=== PATIENT | female | born 1990 | race Caucasian/White ===

== ENCOUNTER → 2019-05-25 10:56 | Outpatient (BNVA) | payer OTHER, SELFPAY | PROVIDERS: Family Provider Nurse Practitioner Family; Visit Provider Obstetrics & Gynecology | DX: Z32.01 Encounter for pregnancy test, result positive (principal); R87.612 Low grade squamous intraepithelial lesion on cytologic smear of cervix (LGSIL) | CPT/HCPCS: 81025 ==

== ENCOUNTER 2019-06-16 07:55 | Day surgery (SDC) | payer OTHER, SELFPAY ==
[2019-06-14 11:58] VITALS: BMI 32.4
--- NOTE | 2019-06-14 12:20 | ANES.PREANE2 ---
Pre-Anesthetic Assessment Pre-Anesthetic Assessment: Height/Weight: Height 1.65 m Weight 88.451 kg Preop Diagnosis: Cervical dysplasia Proposed Procedure: Operation Date: 06/16/19 09:00 Proposed Procedures p Cold Knife Cone Biopsy 06608 N87.1(Not Applicable) - Naveed Warner MD Social: Packs per day: 1 Pack years: 11 Exam: Pre-Anes Outpt Exam: alert, oriented x 3, clear to auscultation bilaterally and regular rate & rhythm Airway: Submandibular: WNL Cervical ROM: WNL MP: 1 Musc/skel: Musc/skel: Lower Back Pain Comments: nonradiating Neuropsych: Neuropsych: MCNEAL Anesthetic Plan: ASA status: 2 Anesthesia: General PFSH Anesthesia PFSH: Family History (Updated 06/14/19 @ 09:00 by Bridgette Lawson RN) Grandfather Heart disease PATERNAL Diabetes PATERNAL Hypercholesteremia PATERNAL Family/Other Diabetes MATERNAL AUNT Stroke PATERNAL AUNT Family/Other Diabetes MATERNAL UNCLE Grandmother Cancer MATERNAL Hypertension PATERNAL Dementia paternal Breast cancer maternal Ovarian cancer maternal Social History (Updated 06/14/19 @ 08:58 by Bridgette Lawson RN) Smoking and tobacco status: current every day smoker cigarettes Packs smoked per day: 1 Years cigarettes smoked: 12 Alcohol intake: current Alcohol intake frequency: holidays/special occasions only Female Reproductive History: Date of last menstrual period: 04/21/19 Data Anesthesia Cardiac Studies: No Data to Display
[2019-06-14 12:24] LABS: Add Urine Microscopic? NO
[2019-06-14 12:29] LABS: Basophils % 0.4 %; Eosinophils # 0.2 10^3/uL (0.0-0.8); Eosinophils % 2.4 %; Hemoglobin 11.9 g/dL (11.5-15.3); Lymphocytes # 3.7 10^3/uL (0.8-4.8); Lymphocytes % 38.5 %; Mean Corpuscular Hemoglobin 28.7 pg (28.0-34.0); Mean Corpuscular Volume 84.3 fL (81-99); Mean Platelet Volume 11.1 fL (7.4-10.4); Monocytes # 0.6 10^3/uL (0.2-0.9); Monocytes % 6.2 %; Neutrophils % 52.3 %; Nucleated Red Blood Cells % 0 %; Platelet Count 281 10^3/cmm (130-400); Red Blood Count 4.15 10^6/uL (4.1-5.3); Red Cell Distribution Width 12.2 % (12.1-15.1); White Blood Count 9.6 10^3/uL (4.0-10.0)
[2019-06-14 12:38] LABS: OR HCG Qualitative Urine Negative (Negative)
[2019-06-14 12:41] LABS: Anion Gap 18.8 (5-19); Blood Urea Nitrogen 4 mg/dL (6-20); Carbon Dioxide 22 mmol/L (22-29); Chloride 102 mmol/L (98-107); Creatinine Clr Calc Pharmacy 151.9655; Glomerular Filtration Rate 118.2 mL/min (90-130); Glucose 154 mg/dL (65-115); Osmolality Calculated 287 mOsm/kg (285-295); Potassium 3.8 mmol/L (3.5-5.1); Sodium 139 mmol/L (136-145)
[2019-06-14 12:46] LABS: Urine Appearance Clear (CLEAR); Urine Color Yellow (Yellow); pH Urine 8 (5-7)
[2019-06-14 12:47] LABS: Bilirubin Urine Neg (NEGATIVE); Blood Urine Neg (Negative); Glucose Urine UA Norm (Normal); Ketones Urine Negative (Negative); Leukocyte Esterase Urine Negative (Negative); Nitrate Urine Negative (Negative); Protein Urine Neg (Negative); Sulfosalicylic Acid Urine Negative; Urobilinogen Urine Norm (Negative)
[2019-06-16] VITALS (7 sets, daily range): BP systolic 129–160; BP diastolic 69–102; PULSE 70–109; RESP 16–24; TEMP 36.5–36.8; O2SAT 96–100
--- NOTE | 2019-06-16 08:08 | W.PM.OPSUD ---
Surgery/Procedure H&P Update DATE OF PROCEDURE: June 16, 2019 DATE H&P PERFORMED: 06/14/19 H&P UPDATE INFORMATION: I have reviewed H&P completed within last 30 days and I have examined patient prior to procedure PREOP DIAGNOSIS: Cervical dysplasia PLANNED PROCEDURE: Operation Date: 06/16/19 09:25 Proposed Procedures p Cold Knife Cone Biopsy 26623 N87.1(Not Applicable) - Naveed Warner MD
[2019-06-16] MEDS: sodium chloride 0.9% 1,000 ML 30 ML IV (08:18)
[2019-06-16] MEDS: ketorolac 30 mg/mL INJ IVP (08:18)
[2019-06-16] MEDS: scopolamine 1.5 Patch 1 PATCH TRANSDERMA (08:19)
--- NOTE | 2019-06-16 08:56 | ANES.PAUD2 ---
Pre-Anesthetic Update Pre-Anesthetic Assessment: Date of Surgery/Procedure: 06/16/19 Preop Diagnosis: Cervical dysplasia Proposed Procedure: Operation Date: 06/16/19 09:25 Proposed Procedures p Cold Knife Cone Biopsy 61143 N87.1(Not Applicable) - Naveed Warner MD Last Intake: Intake Last Liquid Date 06/15/19 Last Solid Date 06/15/19 Labs Last 48hrs: Laboratory Results - last 48 hr 06/14/19 06/14/19 06/14/19 12:05 12:05 12:05 WBC 9.6 RBC 4.15 Hgb 11.9 Hct 35.0 L MCV 84.3 MCH 28.7 MCHC 34.0 RDW 12.2 Plt Count 281 MPV 11.1 H Neut % (Auto) 52.3 Lymph % (Auto) 38.5 [place] % (Auto) 6.2 Eos % (Auto) 2.4 Baso % (Auto) 0.4 Neut # (Auto) 5.0 Lymph # (Auto) 3.7 [place] # (Auto) 0.6 Eos # (Auto) 0.2 Baso # (Auto) 0.0 Nucleated RBC % (a uto) 0 Nucleated RBCs # 0.0 Sodium 139 Potassium 3.8 Chloride 102 Carbon Dioxide 22 Anion Gap 18.8 BUN 4 L Creatinine 0.6 GFR Calculation 118.2 Glucose 154 H Calculated Osmolal ity 287 Calcium 10.0 Urine Color Urine Appearance Urine pH Ur Specific Gravit y Urine Protein Urine Glucose (UA) Urine Ketones Urine Blood Urine Nitrate Urine Bilirubin Prot Sulfosalicyli c Acd Urine Urobilinogen Ur Leukocyte Isa ase Urine HCG, Qual Negative Blood Type Antibody Screen 06/14/19 06/14/19 12:05 12:05 WBC RBC Hgb Hct MCV MCH MCHC RDW Plt Count MPV Neut % (Auto) Lymph % (Auto) [place] % (Auto) Eos % (Auto) Baso % (Auto) Neut # (Auto) Lymph # (Auto) [place] # (Auto) Eos # (Auto) Baso # (Auto) Nucleated RBC % (a uto) Nucleated RBCs # Sodium Potassium Chloride Carbon Dioxide Anion Gap BUN Creatinine GFR Calculation Glucose Calculated Osmolal ity Calcium Urine Color Yellow Urine Appearance Clear Urine pH 8 H Ur Specific Gravit y 1.010 Urine Protein Neg Urine Glucose (UA) Norm Urine Ketones Negative Urine Blood Neg Urine Nitrate Negative Urine Bilirubin Neg Prot Sulfosalicyli c Acd Negative Urine Urobilinogen Norm Ur Leukocyte Isa ase Negative Urine HCG, Qual Blood Type O Positive Antibody Screen Negative Vitals: Temperature 97.7 F 06/16/19 08:07 Temperature Source Temporal Artery S can 06/16/19 08:07 Pulse Rate 74 06/16/19 08:07 Respiratory Rate 18 06/16/19 08:07 Blood Pressure 142/95 06/16/19 08:07 Blood Pressure Amie n 110 06/16/19 08:07 Pulse Oximetry 96 06/16/19 08:07 Oxygen Delivery Me thod 06/16/19 08:07 Cardiac Studies: No Data to Display
--- NOTE | 2019-06-16 10:24 | SUR.OPER ---
1020 lugols and monsels solution used on the cervix by dr hermosillo
--- NOTE | 2019-06-16 11:03 | PM.OP ---
Operative Report Date of procedure: June 16, 2019 Pre-op Diagnosis: Cervical dysplasia Post-op diagnosis: same Post-op Findings: normal cervix Procedure Done: Cervical cone Biopsy Specimens removed/disposition: cervical cone specimen Surgeon: Naveed Warner Anesthesia: General Estimated blood loss (mL): 10 IV fluids (mL): 700 Findings: normal-looking cervix Condition: stable Disposition: PACU Brief History: 28-year-old female with abnormal Pap smear high-grade with cervical dysplasia Procedure: After informed consent, the patient was taken to the operating room where general anesthesia was administered without difficulty. After administration of general anesthesia, the patient was placed in the dorsal lithotomy position, and prepped and draped in the usual sterile fashion. A time-out procedure was performed. The patient was examined under anesthesia and found to have a normal uterus with normal adnexa. A weighted speculum was then placed in the patient's vagina and the anterior lip of the cervix grasped with the singed toothed tenaculum A uterine sound was then advanced into the cervix to determine its direction and length. The decending cervical branchs of the uterine arteries were ligated with 2-0 Vicryl bilaterally at the level of the internal os. Attention was then turned to the cervix where it was stain with Lugol?s solution to hightlight the lesion. The paracervical area was then circumferentially infiltrated using Lidocaine 1% with epinephrine. A [employer] Cone Biopsy Excisor was used to cut the cone biopsy in circular fashion and following removal of the specimen a suture was placed at the 12 o?clock location and fixed in formalin. Bleeding was minimal. The patient tolerated the procedure well, sponge, lap and needle counts were correct times two She was taken to the recovery room in good condition.
[2019-06-16] MEDS: cetylpyridinium Lozenge 1 EACH MUCOUS MEM (11:38)
== END 2019-06-16 11:40 | disposition home or self-care (01) ==
PROVIDERS: Family Provider Nurse Practitioner Family; PCP Nurse Practitioner Family; Visit Provider Obstetrics & Gynecology
PROC: 0UB97ZZ Excision of Uterus, Via Natural or Artificial Opening (ICD-10-PCS; CPT 57520; principal; 2019-06-16 09:25)
DX: D06.9 Carcinoma in situ of cervix, unspecified (principal); Z82.49 Family history of ischemic heart disease and other diseases of the circulatory system; Z83.3 Family history of diabetes mellitus; Z80.41 Family history of malignant neoplasm of ovary; Z80.3 Family history of malignant neoplasm of breast; F17.210 Nicotine dependence, cigarettes, uncomplicated
CPT/HCPCS: 57522; 12345; 36415; 80048; 81003; 81025; 84703; 85025; 86850; 86900; 88307; 96365; 96374; J0131; J0690; J1100; J1885; J2001; J2250; J2405; J3010; J7030

== ENCOUNTER → 2019-12-06 14:49 | Outpatient (BNVA) | payer OTHER, SELFPAY | PROVIDERS: Family Provider Nurse Practitioner Family; PCP Nurse Practitioner Family; Visit Provider Internal Medicine | DX: R50.9 Fever, unspecified (principal) | CPT/HCPCS: 87635 ==

== ENCOUNTER → 2020-05-02 11:52 | Outpatient (BNVA) | payer OTHER, SELFPAY | PROVIDERS: Family Provider Nurse Practitioner Family; PCP Nurse Practitioner Family; Visit Provider Family Medicine | DX: Z20.828 Contact with and (suspected) exposure to other viral communicable diseases (principal) | CPT/HCPCS: 87635 ==

== ENCOUNTER → 2020-06-29 14:24 | Outpatient (BNVA) | payer OTHER, SELFPAY | PROVIDERS: Family Provider Nurse Practitioner Family; PCP Nurse Practitioner Family; Visit Provider Obstetrics & Gynecology | DX: R87.610 Atypical squamous cells of undetermined significance on cytologic smear of cervix (ASC-US) (principal); R87.612 Low grade squamous intraepithelial lesion on cytologic smear of cervix (LGSIL) | CPT/HCPCS: 81025; 88305 ==

== ENCOUNTER → 2021-05-09 13:45 | Outpatient (BNVA) | payer OTHER, SELFPAY | PROVIDERS: Family Provider Nurse Practitioner Family; PCP Nurse Practitioner Family; Visit Provider Family Medicine | DX: Z20.822 Contact with and (suspected) exposure to COVID-19 (principal); Z20.828 Contact with and (suspected) exposure to other viral communicable diseases | CPT/HCPCS: 87635 ==

== ENCOUNTER → 2021-07-02 15:44 | Outpatient (BNVA) | payer OTHER, SELFPAY | PROVIDERS: Family Provider Nurse Practitioner Family; PCP Nurse Practitioner Family; Visit Provider Obstetrics & Gynecology | DX: Z12.4 Encounter for screening for malignant neoplasm of cervix (principal) | CPT/HCPCS: 87624 ==

== ENCOUNTER → 2022-11-28 15:50 | Outpatient (BNVA) | payer OTHER, SELFPAY | PROVIDERS: Family Provider Nurse Practitioner Family; PCP Nurse Practitioner Family; Visit Provider Obstetrics & Gynecology | DX: Z12.4 Encounter for screening for malignant neoplasm of cervix (principal) | CPT/HCPCS: 87624 ==

== ENCOUNTER → 2022-12-10 07:51 | Outpatient (BNVA) | payer OTHER, SELFPAY | PROVIDERS: Family Provider Nurse Practitioner Family; PCP Nurse Practitioner Family; Visit Provider Obstetrics & Gynecology | DX: R10.2 Pelvic and perineal pain (principal) | CPT/HCPCS: 76830 ==

== ENCOUNTER → 2023-03-18 10:27 | Day surgery (SDC) | payer OTHER, SELFPAY ==
[2023-03-11 11:12] LABS: Basophils # 0.1 10^3/uL (0.0-0.1); Basophils % 0.6 %; Eosinophils # 0.3 10^3/uL (0.0-0.8); Eosinophils % 2.8 %; Hematocrit 40.8 % (36-47); Lymphocytes # 3.6 10^3/uL (0.8-4.8); Lymphocytes % 31.3 %; Mean Corpuscular HGB Conc 34.3 g/dL (30-55); Mean Corpuscular Volume 87.6 fl (85-98); Mean Platelet Volume 10.5 fL (7.4-10.4); Monocytes # 0.7 10^3/uL (0.2-0.9); Monocytes % 6.1 %; Neutrophils # 6.69 10^3/uL (1.8-7.7); Neutrophils % 58.9 %; Nucleated Red Blood Cells % 0 %; Platelet Count 309 10^3/cmm (157-399); Red Blood Count 4.66 10^6/uL (3.85-5.65); Red Cell Distribution Width 12.3 % (12.1-15.1); White Blood Count 11.35 10^3/uL (3.29-11.43)
[2023-03-11 11:30] LABS: Alanine Aminotransferase 10 U/L (0-33); Albumin Level 4.5 g/dL (3.5-5.2); Alkaline Phosphatase 76 U/L (35-105); Anion Gap 15.3 (5-19); Aspartate Amino Transferase 20 U/L (0-32); Blood Urea Nitrogen 6 mg/dL (6-20); Calcium 9.8 mg/dL (8.5-10.5); Carbon Dioxide 24 mmol/L (22-29); Chloride 105 mmol/L (98-107); Globulin 3.1 g/dL (1.3-4.6); Glomerular Filtration Rate 115.1 mL/min (90-130); Glucose 125 mg/dL (65-115); Osmolality Calculated 289 mOsm/kg (285-295); Potassium 4.3 mmol/L (3.5-5.1); Sodium 140 mmol/L (136-145); Total Bilirubin 0.2 mg/dL (0.15-1.2); Total Protein 7.6 g/dL (6.6-8.7)
[2023-03-11 11:35] LABS: Bilirubin Urine Neg (Negative); Blood Urine 3+ (Negative); Glucose Urine UA Norm (Normal); Ketones Urine Negative (Negative); Nitrate Urine Negative (Negative); Protein Urine Neg (Negative); Sulfosalicylic Acid Urine Negative (Negative); Urine Appearance Clear (CLEAR); Urine Color Straw (Yellow); pH Urine 8 (5-7)
[2023-03-11 11:36] LABS: Add Urine Culture? No; Add Urine Microscopic? YES; Bacteria Urine TRACE /hpf; Leukocyte Esterase Urine Negative (Negative); RBC Urine 0-4 /hpf (0-2); Squamous Epithelial Cell Urine 0-4 /hpf (0-5); Urobilinogen Urine Neg (Negative); WBC Urine 0-4 /hpf (0-5)
--- NOTE | 2023-03-11 13:55 | P.ANESASSM_ITS ---
Pre-Anesthetic Assessment Height/Weight: Height 1.65 m Operation Date: 03/18/23 12:00 Proposed Procedures p Diagnostic laparoscopy 08021, R10.2, G89.29(Not Applicable) - Naveed Warner MD Familial anesthetic complications: PONV Was Beta Feliz taken within 24 hours: N/A Was Clonidine taken within 24 hours: N/A Social Tobacco and No alcohol Exam alert, oriented x 3, clear to auscultation bilaterally and regular rate & rhythm Airway Submandibular: within normal limits Cervical ROM: within normal limits Mallampati: Class II Dentition: chipped Pulmonary Chronic Obstructive Pulmonary Disease GI Gastroesophageal Reflux Disease Metabolic Morbid Obesity Anesthetic Plan ASA status: 2 Anesthesia: General Medications/Allergies Home Medications Medication Instructions Recorded Confirmed Last Taken Type cyclobenzaprine 10 mg tablet 10 mg PO .PRN PRN migrain 05/18/19 03/11/23 03/10/23 History omeprazole 20 mg capsule,delayed 20 mg PO DAILY 12/06/19 03/11/23 03/11/23 History release lactobacillus combination no.8 3 3,000 mmu cells PO DAILY 06/13/20 03/11/23 02/18/23 History billion cell capsule (Adult Probiotic) ibuprofen 800 mg tablet 800 mg PO TID PRN pain #60 tabs 07/02/21 03/11/23 02/25/23 Rx methylsulfonylmethane 1,000 mg 1,000 mg PO ONCE 07/02/21 03/11/23 Unknown History capsule (MSM) ondansetron 4 mg disintegrating 4 mg PO Q8H PRN Nausea 11/28/22 03/11/23 02/25/23 History tablet tirzepatide 10 mg/0.5 mL 10 mg SUBCUT DIRECTED 03/10/23 03/11/23 02/25/23 History subcutaneous pen injector (Mounjaro) Allergies Allergy/AdvReac Type Severity Reaction Status Date / Time metronidazole Allergy Severe ITCHING Verified 03/10/23 07:44 PFSH Anesthesia Medical History LGSIL on Pap smear of cervix 12/29/18--- Family History Grandfather Heart disease PATERNAL Diabetes PATERNAL Hypercholesteremia PATERNAL Family/Other Diabetes MATERNAL AUNT Stroke PATERNAL AUNT Family/Other Diabetes MATERNAL UNCLE Grandmother Cancer MATERNAL Hypertension PATERNAL Dementia paternal Breast cancer maternal Ovarian cancer maternal Social History Smoking and tobacco/nicotine status: current every day tobacco/nicotine user cigarettes Packs smoked per day: 1 Years cigarettes smoked: 12 Alcohol intake: current Alcohol intake frequency: holidays/special occasions only Alcohol type: beer Substance/Drug Use: never Female Reproductive History Date of last menstrual period: 03/09/23 Data Anesthesia 03/11/23 10:33 03/11/23 10:33 Short CBC 03/11/23 Range/Units 10:33 WBC 11.35 (3.29-11.43) 10^3/uL Hgb 14.00 (11.27-16.99) g/dL Hct 40.8 (36-47) % MCV 87.6 (85-98) fl Plt Count 309 (157-399) 10^3/cmm Neut % (Auto) 58.9 % Neut # (Auto) 6.69 (1.8-7.7) 10^3/uL BMP 03/11/23 10:33 Sodium 140 Potassium 4.3 Chloride 105 Carbon Dioxide 24 BUN 6 Creatinine 0.6 Glucose 125 H Calcium 9.8 Liver Function 03/11/23 Range/Units 10:33 Total Bilirubin 0.2 (0.15-1.2) mg/dL AST 20 (0-32) U/L ALT 10 (0-33) U/L Alkaline Phosphatase 76 (35-105) U/L Albumin 4.5 (3.5-5.2) g/dL Urine 03/11/23 Range/Units 10:39 Urine Color Straw (Yellow) Urine Appearance Clear (CLEAR) Urine pH 8 H (5-7) Ur Specific [place] 1.010 (1.005-1.030) Urine Protein Neg (Negative) Urine Glucose (UA) Norm (Normal) Urine Ketones Negative (Negative) Urine Nitrate Negative (Negative) Urine Bilirubin Neg (Negative) Ur Leukocyte Esterase Negative (Negative) Urine RBC 0-4 H (0-2) /hpf Urine WBC 0-4 H (0-5) /hpf Cardiac Studies: No Data to Display
[2023-03-18] VITALS (13 sets, daily range): BP systolic 122–144; BP diastolic 82–101; PULSE 60–95; RESP 12–18; TEMP 36.3–37.1; O2SAT 95–100; BMI 29.1
[2023-03-18] MEDS: sodium chloride 0.9% 1,000 ML 30 ML IV (11:18)
[2023-03-18] MEDS: scopolamine 1.5 Patch 1 PATCH TRANSDERMA (11:20)
--- NOTE | 2023-03-18 12:54 | P.ANESUD_ITS ---
Pre-Anesthetic Update Pre-Anesthetic Assessment: Date of Surgery/Procedure: 03/18/23 Preop Clare gnosis: chronic pelvic pain Proposed Procedure: Operation Date: 03/18/23 12:00 Proposed Procedures p Diagnostic laparoscopy 51220, R10.2, G89.29(Not Applicable) - Naveed Warner MD Any changes to Pre-Anesthetic Assessment?: No Last Intake: Intake Last Liquid Date 03/18/23 Last Liquid Time 01:30 Last Solid Date 03/18/23 Last Solid Time 01:30 Vitals: Temperature 98.8 F 03/18/23 10:41 Temperature Source Temporal Artery S can 03/18/23 10:41 Pulse Rate 95 03/18/23 10:41 Respiratory Rate 18 03/18/23 10:41 Blood Pressure 130/101 03/18/23 10:41 Blood Pressure Amie n 110 03/18/23 10:41 Pulse Oximetry 100 03/18/23 10:41 Oxygen Delivery Me thod Room Air 03/18/23 10:52 Exam: Pre-Anes Outpt Exam: alert, oriented x 3, clear to auscultation bilaterally and regular rate & rhythm Cardiac Studies: No Data to Display
[2023-03-18] MEDS: midazolam 1 mg/mL INJ 2 mL 2 MG IVP (13:17)
--- NOTE | 2023-03-18 13:29 | W.PM.OPSUD ---
Surgery/Procedure H&P Update DATE OF PROCEDURE: March 18, 2023 DATE H&P PERFORMED: 03/10/23 H&P UPDATE INFORMATION: I have reviewed H&P completed within last 30 days, I have examined patient prior to procedure and No changes to prior documentation PREOP DIAGNOSIS: chronic pelvic pain PLANNED PROCEDURE: Operation Date: 03/18/23 12:00 Proposed Procedures p Diagnostic laparoscopy 27694, R10.2, G89.29(Not Applicable) - Naveed Warner MD
[2023-03-18] MEDS: ceFAZolin 2,000 MG in sodium chloride 0.9% (plus) 50 ML 100 MG IV (13:54)
[2023-03-18 13:55] LABS: OR HCG Qualitative Urine Negative (Negative)
[2023-03-18] MEDS: BUPivacaine 0.5% INJ 10 mL INJECTION (14:44)
--- NOTE | 2023-03-18 14:55 | P.OP_ITS ---
Operative Report Date of procedure: March 18, 2023 Pre-op diagnosis: Pelvic pain, dysmenorrhea Post-op diagnosis: Endometriosis Post-op findings: Mild endometriosis Procedure done: Diagnostic laparoscopy Fulguration of endometriosis lesions Surgeon: Naveed Warner MD Estimated blood loss (mL): 5 IV fluids (mL): 500 Urine output (mL): 50 Complications: None Findings: Mild endometriosis in posterior aspect of uterus and uterosacral ligament Procedure: After informed consent, the patient was taken to the operating room where general anesthesia was administered. The patient was examined under anesthesia and found to have a normal uterus with normal adnexa. She was placed in the dorsal lithotomy position and prepped and draped in sterile fashion. Pre- Procedure Time-Out verifying the correct patient identity, correct procedure verified with consent, correct site and side, correct patient position, availability of correct implants and any special equipment or requirements was performed and acknowledge by the OR team. A weighted speculum was placed in the vagina, and the anterior lip of cervix was grasped with the single toothed tenaculum. A uterine manipulator was advanced into the endocervical. Tenaculum was removed after uterine manipulator was secured. The speculum was removed from the vagina. An intraumbilical incision was made with a scalpel. While tenting up on the abdomen, a Verres needle with sleeve was admitted into the intra-abdominal cavity. A saline drop test was performed and noted to be within normal limits. Pneumoperitoneum was attained with 4 liters of carbon dioxide. The Verres needle was removed. A 5 mm trocar and sleeve were admitted into the abdomen and laparoscopic confirmation of location was achieved, A second incision was made 3 cm above the symphysis pubis, and a 5 mm trocar and sleeve were admitted into the abdomen under direct, laparoscopic visualization without complication. A survey revealed normal abdominal anatomy. The pelvic survey shows normal uterus, left and right adnexa. A 5 mm blunt probe was advanced through the second trocar sleeve, and light manipulation of ovaries and uterus to assess the posterior aspects was performed where 4 small endometroisis lesion were noted. A monopolar spatula was inroduced through the suprapubic trocar and the lesion were fulgurated. Carbon dioxide was allowed to escape from the abdomen. The instruments were removed, and skin cover with a bandage. The instruments were removed from the vagina, and excellent hemostasis was noted. The patient tolerated the procedure well, and sponge, lap and needle count were correct times two. The patient taken to the recovery room in good condition. Related Problem List Diagnoses (1) Endometriosis determined by laparoscopy:
[2023-03-18] MEDS: ondansetron 2 mg/ML SDV 2 mL 4 MG IVP (15:09)
[2023-03-18] MEDS: fentaNYL 50 mcg/mL INJ 2mL IVP (15:14)
[2023-03-18] MEDS: HYDROcodone-acetaminophen 5-325 mg Tablet 1 TAB PO (15:55)
--- NOTE | 2023-03-18 16:10 | ANE.PACU2 ---
Inpatient post-anesthesia follow up: Airway intact: Yes Vital signs: Temperature 97.9 F Pulse Rate 60 Respiratory Rate 16 Blood Pressure 139/89 Pulse Oximetry 96 Oxygen Delivery Me thod Room Air Oxygen Flow Rate 8 Fraction of Inspir ed Oxygen Hydration adequate: Yes Nausea and vomiting: No Pain level: 1 Mental status: Baseline
--- NOTE | 2023-03-18 16:28 | PC.NURSE ---
cordoba catheter removed without incident, 300 ml clear pale yellow urine
== END | disposition home or self-care (01) ==
PROVIDERS: Anesthesiology; Family Provider Nurse Practitioner Family; PCP Nurse Practitioner Family; Visit Provider Obstetrics & Gynecology
PROC: (CPT 49320; principal; 2023-03-18 11:50)
DX: N80.30 Endometriosis of pelvic peritoneum, unspecified (principal); N94.6 Dysmenorrhea, unspecified
CPT/HCPCS: 58662; 36415; 80053; 81001; 81025; 84703; 85025; 86850; 86900; J0690; J1100; J1200; J2250; J2405; J2704; J2710; J3010; J3490; J7030

== ENCOUNTER → 2023-04-28 11:40 | Outpatient (BNVA) | payer OTHER, SELFPAY | PROVIDERS: Family Provider Nurse Practitioner Family; PCP Nurse Practitioner Family; Visit Provider Obstetrics & Gynecology | DX: Z48.816 Encounter for surgical aftercare following surgery on the genitourinary system (principal) | CPT/HCPCS: 83001; 84443 ==

== ENCOUNTER → 2023-05-09 16:00 | Outpatient (BNVA) | payer OTHER, SELFPAY | PROVIDERS: Family Provider Nurse Practitioner Family; PCP Nurse Practitioner Family; Visit Provider Obstetrics & Gynecology | DX: Z30.9 Encounter for contraceptive management, unspecified (principal) | CPT/HCPCS: 81025 ==

== ENCOUNTER 2024-02-05 13:25 | Outpatient (CLI) | payer OTHER, SELFPAY ==
--- NOTE | 2024-02-05 13:45 | MR_ITS ---
WS: [id number] MRI HEAD WITHOUT AND WITH GADOLINIUM ENHANCE WITH ATTENTION TO THE ORBITS TECHNIQUE: Sagittal T1, T2 axial, T2 axial FLAIR, axial susceptibility weighted imaging, axial diffus ion weighted images, and coronal T2 images were obtained. Pre and post-T1 axial and post T1 coronal i mages. ADC and FSPGR images. Orbit protocol. CLINICAL INFORMATION: G43.711 - Chronic migraine without aura, intractable, wit... COMPARISON: None. FINDINGS: No evidence of restricted diffusion to suggest acute ischemia. Ventricular system and basilar cistern s are patent. No suspicious intracranial signal abnormalities. Normal gallego-white differentiation. Nor mal posterior fossa. Normal vascular flow voids at the skull base. No extra-axial fluid collections. No evidence of mass or mass effect. Mild mucosal thickening in the paranasal sinuses. Mastoid air cells are well aerated. Incidental slightly low-lying cerebellar tonsils. No hemosiderin on the susceptibility weighted images. Normal optic chiasm and pituitary infundibulum. Temporal lobes and hippocampal formations are normal in appearance. No abnormal gadolinium enhancement. Orbits are normal in appearance. No evidence of optic neuritis. Normal optic nerves. Normal visualize d rectus muscles. No other suspicious findings. MR/MR head orbits wo/w* 26616/43 IMPRESSION: 1. No evidence of restricted diffusion to suggest acute ischemia. 2. No suspicious intracranial signal abnormalities 3. No hemosiderin on the susceptibility weighted images. 4. Temporal lobes and hippocampal formations are normal in appearance. 5. Visualized orbits are normal. Normal optic chiasm.
[2024-02-05] MEDS: gadobenate dimeglumine 5 mL vial IV (14:02)
== END 2024-02-05 13:26 | disposition home or self-care (01) ==
LOC: RAD 13:28
PROVIDERS: Family Provider Nurse Practitioner Family; PCP Nurse Practitioner Family; Visit Provider Specialist
DX: G43.711 Chronic migraine without aura, intractable, with status migrainosus (principal)
CPT/HCPCS: 70543; 70553